=== PATIENT | female | born 1945 | race African-American/Black ===

== ENCOUNTER → 2016-02-08 | Outpatient (CLI) | payer OTHER ==
[~2016-02-08] MED LIST: ALDACTONE25 MG PO; CIPRO500 MG PO; COLACE100 MG PO; CYCLOBENZAPRINE10 MG PO; FENOFIBRATE PO; FLOMAX0.4 MG PO; HYDROCHLOROTHIA25 M2 PO; HYDROCODONE-AP1 EAC6 PO; IBUPROFEN 200200 M1 PO; PRILOSEC40 MG PO; SYMBICORT160 MCG/4. INH; ZAFIRLUKAST20 MG PO
== END ==
LOC: MRI 09:54
DX: M48.06 Spinal stenosis, lumbar region (principal); M47.816 Spondylosis without myelopathy or radiculopathy, lumbar region; M54.5 Low back pain

== ENCOUNTER → 2016-04-26 | Outpatient (CLI) | payer OTHER ==
--- NOTE | ~2016-04-26 | 2DMMODE ---
[facility] [place] [address] 2 D/M-MODE ECHOCARDIOGRAM Name: LEXIJODIE Room #: REG CL [facility]#: [id number] Admission: 04/26/16 Attend Phys: Richard Cabral Discharge: Date of : 43 Date of Service: 04/26/16 1538 Report #: [id number] THIS REPORT FOR: //name// APPROVED REPORT EXAM: Comprehensive 2D, Doppler, and color-flow Echocardiogram Patient Location: Out-Patient Blood Pressure: 114/74 mmHg HR: 78 bpm Other Information Study Quality: Poor Indications COPD Hypertension/HDD 2D Dimensions RVDd: 28.00 mm LVEF(%): 66.64 (>50%) IVSd: 9.20 (7-11mm) LVOT Diam: 21.57 (18-24mm) LVDd: 41.52 mm PWd: 10.49 (7-11mm) Ascending Aorta: 31.79 mm LVDs: 26.38 (25-40mm) IVC: 19.00 mm Aortic Root: 35.00 mm Rodríguez's LVEF: 66.64 % Volumes Left Atrial Volume (Systole) Single Plane 4CH: 35.73 mL Single Plane 2CH: 35.08 mL LA ESV Index: 23.00 mL/m2 Aortic Valve AoV Peak Raj.: 0.92 m/s AO Peak Gr.: 3.40 mmHg LV Max P.86 mmHg LV Max: 0.85 m/s Mitral Valve MV PHT: 131.88 ms MV E Max Raj.: 0.47 m/s E/A Ratio: 0.5 MV A Raj.: 0.97 m/s MV Decel. Time: 454.74 ms Pulmonary Valve [facility] [email or web address] [place] [address] 2 D/M-MODE ECHOCARDIOGRAM Name: JODIE ELLIOTT Room #: REG [facility]#: [id number] Admission: 04/26/16 Attend Phys: Richard Cabral Discharge: Date of : 43 Date of Service: 04/26/16 1538 Report #: [id number] PV Peak Raj.: 0.62 m/s PV Peak Gr.: 1.54 mmHg Tricuspid Valve RAP Estimate: 5.00 mmHg Left Ventricle The left ventricle is normal size. There is normal LV segmental wall motion. There is normal left ventricular wall thickness. Left ventricular systolic function is normal. The left ventricular ejection fraction is within the normal range. LVEF is 55-60%. Grade I - abnormal relaxation pattern. Right Ventricle The right ventricle is normal size. The right ventricular systolic function is normal. Atria The left atrium size is normal. The right atrium size is normal. Aortic Valve The aortic valve is normal in structure. Trace aortic regurgitation. There is no aortic valvular stenosis. Mitral Valve The mitral valve is normal in structure. Mild mitral regurgitation. Tricuspid Valve The tricuspid valve is normal in structure. Trace tricuspid regurgitation. Unable to assess PA pressure. Pulmonic Valve The pulmonary valve is normal in structure. Trace pulmonic regurgitation. Great Vessels The aortic root is normal in size. IVC is normal in size and collapses >50% with inspiration. Pericardium There is no pericardial effusion. <Conclusion> The left ventricle is normal size. Left ventricular systolic function is normal. [facility] [place] [address] 2 D/M-MODE ECHOCARDIOGRAM Name: JODIE ELLIOTT Room #: REG [facility].#: [id number] Admission: 04/26/16 Attend Phys: Richard Cabral Discharge: Date of : 43 Date of Service: 04/26/161537 Report #: [id number] The left ventricular ejection fraction is within the normal range. LVEF is 55-60%. Trace aortic regurgitation. The mitral valve is normal in structure. Mild mitral regurgitation. Trace tricuspid regurgitation. <ELECTRONICALLY SIGNED> By: Richard Hammer MD 04/26/16 1538 37 Richard Hammer MD /INF
== END ==
LOC: CV 13:54
DX: J44.9 Chronic obstructive pulmonary disease, unspecified (principal); I10 Essential (primary) hypertension

== ENCOUNTER → 2016-05-02 | Outpatient (CLI) | payer OTHER | LOC: NUC 07:06 | DX: I42.9 Cardiomyopathy, unspecified (principal) ==